=== PATIENT | male | born 1970 | race Caucasian/White ===

== ENCOUNTER 2022-02-17 11:07 | Emergency (ER) | payer BC ==
[2022-02-17 12:18] LABS: BUN/CREATININE RATIO 14 (0-10)
== END 2022-02-17 13:14 | disposition home or self-care (01) ==
LOC: ER1 11:07
PROVIDERS: Physician Assistant
DX: Z00.00 Encounter for general adult medical examination without abnormal findings (principal); E11.9 Type 2 diabetes mellitus without complications; I10 Essential (primary) hypertension; E78.5 Hyperlipidemia, unspecified; F17.220 Nicotine dependence, chewing tobacco, uncomplicated
CPT/HCPCS: 80048; 99282